=== PATIENT | male | born 1985 | race Hispanic/Latino ===

== ENCOUNTER 2018-01-16 17:34 | Emergency (ER) | payer OTHER ==
--- NOTE | 2018-01-16 18:25 | RAD ---
FOUR VIEWS LEFT ELBOW: 01/16/18 COMPARISON: None. HISTORY: Left elbow swelling for one month. FINDINGS: Four views left elbow shows no evidence of acute fracture or dislocation. No elbow effusion is seen. No degenerative changes are seen. Mild posterior soft tissue swelling is seen. IMPRESSION: No evidence of acute osseous abnormality. POS: C
== END 2018-01-16 19:19 | disposition home or self-care (01) ==
LOC: ERS 17:34
DX: M70.22 Olecranon bursitis, left elbow (principal); E11.9 Type 2 diabetes mellitus without complications; Z79.4 Long term (current) use of insulin

== ENCOUNTER 2018-03-06 11:14 | Emergency (ER) | payer OTHER ==
[2018-03-06] MEDS ORDERED: Ibuprofen 800 MG TAB ONE (12:10)
== END 2018-03-06 12:16 | disposition home or self-care (01) ==
LOC: ERS 11:14
DX: M54.2 Cervicalgia (principal); E10.9 Type 1 diabetes mellitus without complications; Z79.899 Other long term (current) drug therapy; V43.52XA Car driver injured in collision with other type car in traffic accident, initial encounter
CPT/HCPCS: 99283

== ENCOUNTER 2019-09-04 21:14 | Emergency (ER) | payer BC, OTHER | END 2019-09-04 22:00 | disposition home or self-care (01) | LOC: ERS 21:14 | DX: S63.601A Unspecified sprain of right thumb, initial encounter (principal); E10.9 Type 1 diabetes mellitus without complications; W23.0XXA Caught, crushed, jammed, or pinched between moving objects, initial encounter; Y92.009 Unspecified place in unspecified non-institutional (private) residence as the place of occurrence of the external cause | CPT/HCPCS: 99283 ==

== ENCOUNTER 2023-08-10 20:16 | Emergency (ER) | payer BC ==
[2023-08-10 21:01] LABS: Bacteria/HPF None Seen HPF (None Seen); Bilirubin Negative (Negative); Blood, Urine Trace (Negative); CAUTI Indications for Culture Pelvic or flank pain; Clarity Clear (Clear); Glucose, Urine (Dipstick) Normal (Negative); Ketone, Urine Negative (Negative); Leukocyte Negative Leu/uL (Negative); Nitrite Negative (Negative); Protein, Urine (Dipstick) Negative (Neg-Trace); RBC/HPF 0-3 HPF (0-3); Squamous Epithelial None Seen HPF (0-3); Urobilinogen Normal mg/dL (Less than 2); WBC/HPF 0-3 HPF (0-3)
[2023-08-10 21:03] LABS: Urine Culture Reflex No No
[2023-08-10] MEDS ORDERED: Ketorolac Tromethamine 30 MG (1 mL) VIAL ONE (21:15)
[2023-08-10 21:20] LABS: #Basophils Less than 0.03 10x3/uL (0.0-0.2); %Basophils 0.2 % (0.0-1.0); %Lymphocytes 18.2 % (21.0-51.0); %Monocytes 6.6 % (0.0-10.0); %Neutrophils 72.4 % (42.0-75.0); Hematocrit 47.1 % (42.0-52.0); Hemoglobin 16.8 g/dL (14.0-18.0); Mean Corpuscular HGB CONC 35.7 g/dL (32.0-36.0); Mean Corpuscular Hemoglobin 31.9 pg (27.0-31.0); Mean Corpuscular Volume 89.4 fL (78.0-98.0); Mean Platelet Volume 9.9 fL (7.4-10.4); Platelet Count 225 10x3/uL (130-400); RBC Distribution Width 12.7 % (11.5-14.5); Red Blood Cell (RBC) Count 5.27 mill/uL (4.70-6.10)
[2023-08-10 21:49] LABS: ALT (SGPT) 82 U/L (8-55); AST (SGOT) 51 U/L (5-34); Albumin 4.5 g/dL (3.5-5.0); Alkaline Phosphatase 79 U/L (40-110); Anion Gap 16 mmol/L (10-20); BUN (Urea Nitrogen) 12 mg/dL (8.9-20.6); Bilirubin, Total 0.4 mg/dL (0.2-1.2); Calc. Creatinine Clearance 0 mL/min (70-130); Calcium 10.3 mg/dL (7.8-10.44); Carbon Dioxide 23 mmol/L (22-29); Chloride 103 mmol/L (98-107); Estimated GFR 83; Globulin 3.9 g/dL (2.4-3.5); Glucose 223 mg/dL (70-105); Lipase 24 U/L (8-78); Potassium 4.5 mmol/L (3.5-5.1); Protein, Total 8.4 g/dL (6.0-8.3); Sodium 137 mmol/L (136-145)
== END 2023-08-10 22:44 | disposition home or self-care (01) ==
LOC: ERS 20:16
DX: M54.50 Low back pain, unspecified (principal); R94.5 Abnormal results of liver function studies; E10.9 Type 1 diabetes mellitus without complications; F17.290 Nicotine dependence, other tobacco product, uncomplicated
CPT/HCPCS: 36415; 74176; 80053; 81001; 83690; 85025; 96372; J1885